=== PATIENT | female | born 1965 | race Caucasian/White ===

== ENCOUNTER 2016-11-11 20:27 | Emergency (ER) | payer MEDICARE, OTHER ==
[2016-11-11] MEDS ORDERED: ASPIRIN 81 MG TABLET, CHEWABLE PO ONE (20:53)
[2016-11-11 21:21] LABS: ABSOLUTE BASOPHILS # (AUTO) 0.1 10^3/uL (0.0-0.2); ABSOLUTE EOSINOPHILS # (AUTO) 0.1 10^3/uL (0.0-0.6); ABSOLUTE LYMPHOCYTES (AUTO) 1.4 10^3/uL (0.5-4.7); ABSOLUTE MONOCYTES (AUTO) 0.5 10^3/uL (0.1-1.4); ABSOLUTE NEUT (AUTO) 4.3 10^3/uL (1.7-8.2); BASOPHILS % (AUTO) 1.3 % (0-2); EOSINOPHILS % (AUTO) 1.2 % (0-6); HEMATOCRIT 33.1 % (36.0-47.0); HEMOGLOBIN 11.5 g/dL (12.0-15.5); HGB HCT DIFFERENCE 1.4; LYMPHOCYTES % (AUTO) 21.6 % (13-45); MEAN CORPUSCULAR HEMOGLOBIN 32.7 pg (27.0-33.4); MEAN CORPUSCULAR HGB CONC 34.9 g/dL (32.0-36.0); MEAN CORPUSCULAR VOLUME 94 fl (80-97); MONOCYTES % (AUTO) 7.5 % (3-13); RED BLOOD COUNT 3.53 10^6/uL (3.72-5.28); RED CELL DISTRIBUTION WIDTH 12.7 % (11.5-14.0); SEGMENTED NEUTROPHILS % (AUTO) 68.4 % (42-78); WHITE BLOOD COUNT 6.3 10^3/uL (4.0-10.5)
--- NOTE | 2016-11-11 21:28 | RADIOLOGY REPORT (SQ) ---
EXAM DESCRIPTION: CHEST SINGLE VIEW COMPLETED DATE/TIME: 11/11/2016 9:13 pm REASON FOR STUDY: chest pain COMPARISON: None. EXAM PARAMETERS: NUMBER OF VIEWS: One view. TECHNIQUE: Single frontal radiographic view of the chest acquired. RADIATION DOSE: NA LIMITATIONS: None. FINDINGS: LUNGS AND PLEURA: No opacities, masses or pneumothorax. No pleural effusion. MEDIASTINUM AND HILAR STRUCTURES: No masses. Contour normal. HEART AND VASCULAR STRUCTURES: Heart normal in size. Normal vasculature. BONES: No acute findings. HARDWARE: None in the chest. OTHER: No other significant finding. IMPRESSION: NO ACUTE RADIOGRAPHIC FINDING IN THE CHEST. TECHNICAL DOCUMENTATION: JOB ID: [id number]
[2016-11-11 21:31] LABS: BLOOD UREA NITROGEN 36 mg/dL (7-20); CALCIUM 8.9 mg/dL (8.4-10.2); CREATININE RESULT 2.07 mg/dL (0.52-1.25); GLUCOSE 109 mg/dL (75-110)
[2016-11-11 21:32] LABS: ALANINE AMINOTRANSFERASE 26 U/L (9-52); ALBUMIN 4.5 g/dL (3.5-5.0); ALKALINE PHOSPHATASE 84 U/L (38-126); ANION GAP 15 (5-19); ASPARTATE AMINO TRANSFERASE 27 U/L (14-36); BILIRUBIN,DIRECT 0.4 mg/dL (0.0-0.4); BILIRUBIN,TOTAL 0.5 mg/dL (0.2-1.3); CARBON DIOXIDE 20 mmol/L (22-30); CHLORIDE 103 mmol/L (98-107); CREATINE KINASE 235 U/L (30-135); POTASSIUM 3.6 mmol/L (3.6-5.0); SODIUM 138.4 mmol/L (137-145); TOTAL PROTEIN 7.7 g/dL (6.3-8.2)
[2016-11-11 21:43] LABS: CREATINE KINASE MB 0.65 ng/mL (<4.55)
[2016-11-11 21:49] LABS: TROPONIN I < 0.012 ng/mL
[2016-11-11] MEDS ORDERED: LIDOCAINE 5% (700 MG) TRANSDERMAL ADH..PATCH TP ONE (22:00)
[2016-11-11] MEDS ORDERED: LIDOCAINE 2% VISCOUS SOLN 20 ML UDCUP PO ONE (22:00)
[2016-11-11] MEDS ORDERED: METOCLOPRAMIDE HCL ORAL SOLN 10 MG/10 ML UDCUP PO ONE (22:00)
[2016-11-11] MEDS ORDERED: MAG HYDROX/AL HYDROX/SIMETH SUSP 30 ML UDCUP PO ONE (22:00)
[2016-11-11] MEDS ORDERED: NORMAL SALINE 1000 ML 2,000 ML IV ONE (22:00)
--- NOTE | 2016-11-11 22:03 | ER Document Report ---
ED General - General Chief Complaint: Chest Pain Stated Complaint: CHEST PAIN Time Seen by Provider: 11/11/16 21:17 Notes: Patient is a 51-year-old female with a past medical history of ulcerative colitis who presents with 3 days of diarrhea with intermittent associated vomiting as well as chest pain. Nothing improves or worsens her pain. States she has had similar symptoms in the past with ulcerative colitis exacerbations. Patient states she became concerned today when she increasingly felt lightheaded and took her blood pressure at home and noticed it was much lower than normal. She also notes that she has been taking her ongoing antihypertensive despite her low blood pressure. She has been having approximately 15 diarrheal bowel movements daily for the past 3 days which she attributes to drinking alcohol over the holiday weekend which often triggers her exacerbations. She has had several episodes of vomiting but has been able to tolerate oral intake today. States today that she did develop some dull, aching pain to the left side of her chest without radiation of the pain. Denies any cardiac history. Denies any history of DVT or pulmonary embolus. Denies any associated shortness of breath or hemoptysis. No use of estrogen. She is visiting from [place] and so has been unable to see her primary care doctor regarding today's concerns. TRAVEL OUTSIDE OF THE [place] IN LAST 30 DAYS: No - Related Data Allergies/Adverse Reactions: ceftriaxone [From Rocephin] Allergy (Verified 11/11/16 21:13) Cephalosporins Allergy (Verified 11/11/16 21:13) Iodinated Contrast- Oral and IV Dye Allergy (Verified 11/11/16 21:13) levofloxacin [From Levaquin] Allergy (Verified 11/11/16 21:13) Past Medical History - General Information source: Patient - Social History Smoking Status: Never Smoker Frequency of alcohol use: None Drug Abuse: None Lives with: Spouse/Significant other Family History: Reviewed & Not Pertinent Patient has suicidal ideation: No Patient has homicidal ideation: No Renal/ Medical History: Denies: Hx Peritoneal Dialysis Review of Systems - Review of Systems Notes: Constitutional: Negative for fever. HENT: Negative for sore throat. Eyes: Negative for visual changes. Cardiovascular: Positive for chest pain. Respiratory: Negative for shortness of breath. Gastrointestinal: Positive for abdominal cramping, vomiting and diarrhea Genitourinary: Negative for dysuria. Musculoskeletal: Negative for back pain. Skin: Negative for rash. Neurological: Negative for headaches, weakness or numbness. 10 point ROS negative except as marked above and in HPI. Physical Exam - Vital signs Vitals: Temp Pulse Resp BP Pulse Ox 98.7 F 91 19 113/66 94 11/11/16 20:44 11/11/16 20:44 11/11/16 20:44 11/11/16 20:44 11/11/16 20:44 Interpretation: Normal Notes: PHYSICAL EXAMINATION: GENERAL: Well-appearing, well-nourished and in no acute distress. HEAD: Atraumatic, normocephalic. EYES: Pupils equal round and reactive to light, extraocular movements intact, sclera anicteric, conjunctiva are normal. ENT: nares patent, oropharynx clear without exudates. Moderately dry mucous membranes. NECK: Normal range of motion, supple without lymphadenopathy LUNGS: Breath sounds clear to auscultation bilaterally and equal. No wheezes rales or rhonchi. HEART: Regular rate and rhythm without murmurs ABDOMEN: Soft, nontender, normoactive bowel sounds. No guarding, no rebound. No masses appreciated. EXTREMITIES: Normal range of motion, no pitting or edema. No cyanosis. NEUROLOGICAL: No focal neurological deficits. Moves all extremities spontaneously and on command. PSYCH: Normal mood, normal affect. SKIN: Warm, Dry, normal turgor, no rashes or lesions noted. Course - Re-evaluation Re-evalutation: 11/11/16 22:00 Patient presents with multiple complaints but ultimately it appears that she has a mild ulcerative colitis exacerbation with associated persistent diarrhea that has resulted in dehydration with an associated acute kidney injury on laboratories with a BUN/creatinine ratio of 17 creatinine at 2.0. No history of chronic kidney dysfunction. Patient also notes that she has had some intermittent, burning, throbbing pain to the right side of her chest. Low clinical suspicion for ACS given clinical history, exam, EKG without ST elevations or depressions, and negative initial troponin. HEART score less than or equal to 3. PE also seems unlikely given clinical history, absence of tachycardia or dyspnea. Patient is PERC criteria negative. CXR without evidence of pneumothorax or pneumonia. No widened mediastinum. Aortic dissection also seems unlikely given history, symmetric pulses, CXR, and vitals. Patient's abdomen is without any focal tenderness, rebound or guarding. She denies any abdominal pain. She has had both vomiting and diarrhea. However, prior to coming to the emergency department today states that she was able to tolerate oral intake. Will proceed with IV rehydration, symptomatic control, and a repeat troponin. If the second troponin remains negative will plan for discharge home with return precautions and follow-up recommendations. 11/12/16 00:28 Second troponin remains negative. Patient states he feels much improved after receiving IV fluids. At this time will discharge with return precautions and follow-up recommendations. Verbal discharge instructions given a the bedside and opportunity for questions given. Medication warnings reviewed. Patient is in agreement with this plan and has verbalized understanding of return precautions and the need for primary care follow-up in the next 24-72 hours. - Vital Signs Vital signs: Temp Pulse Resp BP Pulse Ox 98.7 F 91 20 114/67 96 11/11/16 20:44 11/11/16 20:44 11/12/16 00:38 11/12/16 00:38 11/12/16 00:38 - Laboratory Result Diagrams: 11/11/16 20:55 11/11/16 20:55 Laboratory results interpreted by me: 11/11/16 11/11/16 20:55 20:55 RBC 3.53 L Hgb 11.5 L Hct 33.1 L Carbon Dioxide 20 L BUN 36 H Creatinine 2.07 H Est GFR ( Amer) 30 L Est GFR (Non-Af Amer) 25 L Creatine Kinase 235 H - Diagnostic Test Radiology reviewed: Image reviewed, Reports reviewed Radiology results interpreted by me: 11/12/16 00:29 Chest x-ray: No acute infiltrate or pneumothorax - EKG Interpretation by Me Additional EKG results interpreted by me: 11/12/16 00:29 Normal sinus rhythm. Rate 88. No ST elevations or depressions. QTC is 455. Discharge - Discharge Clinical Impression: Vomiting and diarrhea, Dehydration, Acute kidney injury Chest pain Qualifiers: Chest pain type: unspecified Qualified Code(s): R07.9 - Chest pain, unspecified Condition: Good Disposition: HOME, SELF-CARE Additional Instructions: Your labs today show that you are dehydrated and you have been given IV fluids here to help improve your symptoms. Your cardiac markers are normal today as are your EKG and chest x-ray. Please follow-up with your primary care doctor for repeat labs within the next 1 week to ensure that her kidney function has returned to normal. Please return if you become unable to keep any fluids down , pass out, have worsening of your symptoms, or have any other symptoms that are worrisome to you.
[2016-11-12] MEDS ORDERED: ONDANSETRON ODT 4 MG TAB (6 TAB/DSPK) PO PRN (00:32)
[2016-11-12 00:49] VITALS: BP 114/67
[2016-11-12] MEDS ORDERED: HYDROXYZINE PAMOATE 50 MG CAPSULE PO ONE (01:06)
--- NOTE | 2016-11-12 09:13 | EKG REPORT ---
SEVERITY:- BORDERLINE ECG - SINUS RHYTHM BORDERLINE T ABNORMALITIES, ANTERIOR LEADS : Confirmed by: Parker Stover MD 12-Nov-2016 09:11:54
== END 2016-11-12 01:17 | disposition home or self-care (01) ==
LOC: ER 20:27
DX: R11.10 Vomiting, unspecified (principal); R19.7 Diarrhea, unspecified; N17.9 Acute kidney failure, unspecified; E86.0 Dehydration; R07.9 Chest pain, unspecified
CPT/HCPCS: 93005; 99285; 96360; 36415; 82553; 82550; 85025; 80053; 84484; 71010; 93010; A9270 ×4; J3490; J7030

== ENCOUNTER 2017-02-23 00:09 | Emergency (ER) | payer MEDICARE, OTHER ==
--- NOTE | 2017-02-23 00:24 | ER Document Report ---
ED General - General Chief Complaint: Back Pain Stated Complaint: BACK PAIN Time Seen by Provider: 02/23/17 00:22 Notes: The patient is a 51-year-old female, past medical history CKD, anxiety, depression, presents by EMS with lower to mid back pain. She is from [facility] and was admitted last week for renal failure and hypotension. She was taken off her losartan while in the hospital, but she is continuing to take her losartan at home and last took it this morning. She is is having mild lower back pain and dysuria, but denies chest pain, shortness of breath, fevers, cough, rash, nausea, vomiting, abdominal pain or headache. TRAVEL OUTSIDE OF THE [place] IN LAST 30 DAYS: No - Related Data Allergies/Adverse Reactions: ceftriaxone [From Rocephin] Allergy (Verified 11/11/16 21:13) Cephalosporins Allergy (Verified 11/11/16 21:13) Iodinated Contrast- Oral and IV Dye Allergy (Verified 11/11/16 21:13) levofloxacin [From Levaquin] Allergy (Verified 11/11/16 21:13) Past Medical History - General Information source: Patient - Social History Smoking Status: Unknown if Ever Smoked Family History: Reviewed & Not Pertinent Renal/ Medical History: Denies: Hx Peritoneal Dialysis Review of Systems - Review of Systems Notes: REVIEW OF SYSTEMS: CONSTITUTIONAL: -fevers, -chills EENT: -eye pain, -difficulty swallowing, -nasal congestion CARDIOVASCULAR:-chest pain, -syncope. RESPIRATORY: -cough, -SOB GASTROINTESTINAL: -abdominal pain, - nausea, -vomiting, -diarrhea GENITOURINARY: -dysuria, -hematuria MUSCULOSKELETAL: +back pain, -neck pain SKIN: -rash or skin lesions. HEMATOLOGIC: -easy bruising or bleeding. LYMPHATIC: -swollen, enlarged glands. NEUROLOGICAL: -altered mental status or loss of consciousness, -headache, - neurologic symptoms PSYCHIATRIC: -anxiety, -depression. ALL OTHER SYSTEMS REVIEWED AND NEGATIVE. Physical Exam - Vital signs Vitals: Resp 20 02/23/17 00:20 - Notes Notes: PHYSICAL EXAMINATION: GENERAL: Eyes closed, no acute distress. AAOx3 and interactive. HEAD: Atraumatic, normocephalic. EYES: Pupils dilated, extraocular movements intact, sclera anicteric, conjunctiva are normal. ENT: nares patent, oropharynx clear without exudates. Moist mucous membranes. NECK: Normal range of motion, supple without lymphadenopathy LUNGS: Breath sounds clear to auscultation bilaterally and equal. No wheezes rales or rhonchi. HEART: Regular rate and rhythm without murmurs ABDOMEN: Soft, nontender, normoactive bowel sounds. No guarding, no rebound. No masses appreciated. EXTREMITIES: Normal range of motion, no pitting or edema. No cyanosis. NEUROLOGICAL: Cranial nerves grossly intact. Normal speech. Normal sensory and motor exams. PSYCH: Normal mood, normal affect. SKIN: Warm, Dry, normal turgor, no rashes or lesions noted. Course - Re-evaluation Re-evalutation: Patient's initial hypotension improved with IV fluids. Suspect that her losartan dose is too high. Also suspect a component of polypharmacy with barbiturates and benzos on board. Blood work is unremarkable, other than a slight acidosis, but normal lactate. Her creatinine is at baseline, according to her. No signs of infection or sepsis. She feels much better. Patient will be discharged home with family member when she is able to ambulate. - Vital Signs Vital signs: Temp Pulse Resp BP Pulse Ox 97.4 F 16 132/75 H 100 02/23/17 00:35 02/23/17 03:20 02/23/17 03:20 02/23/17 03:20 - Laboratory Result Diagrams: 02/23/17 00:30 02/23/17 01:34 Laboratory results interpreted by me: 02/23/17 02/23/17 02/23/17 00:30 00:30 01:34 RBC 3.64 L Hgb 11.6 L Hct 33.4 L VBG pH BUN 34 H Creatinine 3.13 H Est GFR ( Amer) 19 L Est GFR (Non-Af Amer) 16 L AST 39 H Creatine Kinase 596 H Total Protein 6.1 L Urine Protein 100 H Ur Leukocyte Esterase SMALL H 02/23/17 02:00 RBC Hgb Hct VBG pH 7.23 L BUN Creatinine Est GFR ( Amer) Est GFR (Non-Af Amer) AST Creatine Kinase Total Protein Urine Protein Ur Leukocyte Esterase Discharge - Discharge Clinical Impression: Polypharmacy Hypotension Qualifiers: Hypotension type: unspecified hypotension type Qualified Code(s): I95.9 - Hypotension, unspecified Condition: Stable Disposition: HOME, SELF-CARE Additional Instructions: Do not take losartan again as this may have caused her blood pressure to become too low. You must follow-up with your primary care physician this week when you return back to [place]. Be careful about taking too many of your benzodiazepines as this may also cause your blood pressure to become low. Return to the ER at any time if you have worsening symptoms or any other concerns.
[2017-02-23 00:46] LABS: ABSOLUTE LYMPHOCYTES (AUTO) 1.4 10^3/uL (0.5-4.7); ABSOLUTE MONOCYTES (AUTO) 0.7 10^3/uL (0.1-1.4); ABSOLUTE NEUT (AUTO) 7.4 10^3/uL (1.7-8.2); BASOPHILS % (AUTO) 0.3 % (0-2); EOSINOPHILS % (AUTO) 0.3 % (0-6); HEMATOCRIT 33.4 % (36.0-47.0); HEMOGLOBIN 11.6 g/dL (12.0-15.5); HGB HCT DIFFERENCE 1.4; LYMPHOCYTES % (AUTO) 14.5 % (13-45); MEAN CORPUSCULAR HEMOGLOBIN 31.9 pg (27.0-33.4); MEAN CORPUSCULAR HGB CONC 34.7 g/dL (32.0-36.0); MEAN CORPUSCULAR VOLUME 92 fl (80-97); MONOCYTES % (AUTO) 6.9 % (3-13); RED BLOOD COUNT 3.64 10^6/uL (3.72-5.28); RED CELL DISTRIBUTION WIDTH 12.6 % (11.5-14.0); WHITE BLOOD COUNT 9.5 10^3/uL (4.0-10.5)
[2017-02-23 01:08] LABS: APPEARANCE,URINE CLOUDY; BILIRUBIN,URINE NEGATIVE (NEGATIVE); GLUCOSE, URINE NEGATIVE (NEGATIVE); KETONES,URINE NEGATIVE (NEGATIVE); LEUKOCYTE ESTERASE,URINE SMALL (NEGATIVE); NITRITE,URINE NEGATIVE (NEGATIVE); PROTEIN,URINE 100 mg/dL (NEGATIVE); URINE SPECIFIC GRAVITY 1.012; UROBILINOGEN,URINE NEGATIVE mg/dL (<2.0)
[2017-02-23 01:37] LABS: URINE BARBITURATES SCREEN UNCONFIRMED POSITIVE; URINE METHADONE SCREEN NEGATIVE; URINE OPIATES LOW NEGATIVE; URINE PHENCYCLIDINE SCREEN NEGATIVE
[2017-02-23 02:09] LABS: ALANINE AMINOTRANSFERASE 27 U/L (9-52); ALBUMIN 3.5 g/dL (3.5-5.0); ALKALINE PHOSPHATASE 62 U/L (38-126); ANION GAP 15 (5-19); ASPARTATE AMINO TRANSFERASE 39 U/L (14-36); BILIRUBIN,DIRECT 0.3 mg/dL (0.0-0.4); BILIRUBIN,TOTAL 0.4 mg/dL (0.2-1.3); BLOOD UREA NITROGEN 34 mg/dL (7-20); CALCIUM 8.4 mg/dL (8.4-10.2); CARBON DIOXIDE 22 mmol/L (22-30); CHLORIDE 105 mmol/L (98-107); CREATINE KINASE 596 U/L (30-135); CREATININE RESULT 3.13 mg/dL (0.52-1.25); GLUCOSE 100 mg/dL (75-110); POTASSIUM 3.8 mmol/L (3.6-5.0); SODIUM 141.7 mmol/L (137-145); TOTAL PROTEIN 6.1 g/dL (6.3-8.2)
[2017-02-23 02:13] LABS: VENOUS BLOOD BASE EXCESS -6.3 mmol/L; VENOUS BLOOD HCO3 21.4 mmol/L (20-32); VENOUS BLOOD PCO2 52.3 mmHg (35-63); VENOUS BLOOD PH 7.23 (7.30-7.42)
[2017-02-23] MEDS ORDERED: NORMAL SALINE 1000 ML 1,000 ML IV PRN (02:24)
[2017-02-23 07:03] VITALS: BP 121/71
== END 2017-02-23 07:38 | disposition home or self-care (01) ==
LOC: ER 00:09
DX: I95.9 Hypotension, unspecified (principal); M54.9 Dorsalgia, unspecified; R30.0 Dysuria; N18.9 Chronic kidney disease, unspecified; Z79.899 Other long term (current) drug therapy
CPT/HCPCS: 36415; 80053; 80307; 81001; 82550; 82803; 83605; 85025; 96360; 99284